=== PATIENT | female | born 2000 | race Caucasian/White ===

== ENCOUNTER → 2021-03-28 11:57 | Outpatient (CLI) | payer MEDICAID, SELFPAY ==
[2021-03-28 12:31] LABS: Basophils % 0.3 % (0.1-2.0); Eosinophils # 0.2 K/mm3 (0.0-0.4); Eosinophils % 1.6 % (0.1-12.0); Hematocrit 38.9 % (37.0-47.0); Hemoglobin 13.4 g/dL (12.2-16.2); Lymphocytes # 2.1 K/mm3 (0.7-4.5); Lymphocytes % 19.2 % (10-50); Mean Corpuscular HGB Conc 34.5 g/dL (31.8-35.4); Mean Corpuscular Hemoglobin 30.4 pg (27.0-31.2); Mean Corpuscular Volume 88.2 fl (81-99); Mean Platelet Volume 7.5 fl (7.4-10.4); Monocytes # 0.6 K/mm3 (0.1-1.0); Monocytes % 5.8 % (1.7-9.3); Neutrophils # 8.1 K/mm3 (1.8-7.8); Neutrophils % 73.1 % (37.0-80.0); Platelet Count 276 K/mm3 (142-424); Red Blood Count 4.41 M/mm3 (4.20-5.40)
[2021-03-28 12:54] LABS: Hemoglobin A1C 4.7 % (4.0-6.0)
[2021-03-28 13:01] LABS: Chloride 102 mmol/L (98-107)
[2021-03-28 13:02] LABS: Potassium 4.3 mmoL/L (3.5-5.1); Sodium 136 mmol/L (136-145)
[2021-03-28 13:04] LABS: Alanine Aminotransferase 35 U/L (12-78); Anion Gap 11.3 mEq/L (5-15); Aspartate Amino Transferase 30 U/L (14-36); Blood Urea Nitrogen 7 mg/dl (7-17); Carbon Dioxide 27 mmol/L (22.0-30.0); Estimated Glomerular Filt Rate 106 ml/min (>60); GFR (African American) 128 ML/MIN (>60)
[2021-03-28 13:05] LABS: Albumin Level 4.6 g/dl (3.5-5.0); Albumin/Globulin Ratio 1.8 (1.1-1.8); Alkaline Phosphatase 67 U/L (38-126); Bilirubin,Total 0.7 mg/dl (0.2-1.3); Calcium 9.9 mg/dl (8.4-10.2); Chol/HDL Ratio 3.3 (1-3.5); Cholesterol 166 mg/dl (140-200); Globulin 2.6 g/dL (1.3-3.2); Glucose 95 mg/dl (74-100); HDL Cholesterol 51 mg/dl (40-60); Total Protein,Serum 7.2 g/dl (6.3-8.2); Triglycerides 66 mg/dl (30-150); VLDL Cholesterol 13 mg/dL (0-40)
[2021-03-28 13:16] LABS: Direct LDL Cholesterol 94.33 mg/dL (100-129)
[2021-03-28 13:35] LABS: Thyroid Stimulating Hormone 1.21 uIU/mL (0.465-4.68)
[2021-03-30 12:30] LABS: H. pylori Stool Ag, EIA Negative (Negative)
== END ==
PROVIDERS: Visit Provider Internal Medicine Adolescent Medicine
DX: R10.13 Epigastric pain (principal); Z83.3 Family history of diabetes mellitus
CPT/HCPCS: 36415; 80053; 80061; 83036; 84443; 85025; 87338

== ENCOUNTER 2021-04-20 09:42 | Emergency (ER) | payer MEDICAID, SELFPAY ==
[2021-04-20 09:42] VITALS: BP 123/75; PULSE 99; RESP 16; TEMP 37.1; O2SAT 98; BMI 25.0
[2021-04-20 10:00] VITALS: BP 123/75; PULSE 99; RESP 16; TEMP 37.1; O2SAT 98; BMI 25.1
--- NOTE | 2021-04-20 10:10 | HMH.EDUTC ---
[facility] [place] Clinical Impression: Dental abscess Disposition: Home, Self-Care Condition on Discharge: Good Instructions: Tooth Abscess, Amoxicillin and Clavulanic Acid Additional Instructions: Use Dental balls as advised in the [facility] for dental pain Return if needed Follow up with Dentist on Thursday as scheduled Follow up with Family Doctor if needed Warm compress to side of face may help with dental pain Straight to ER if any life threatening symptoms Prescriptions: Amoxicillin/Potassium Clav [Augmentin 875-125 Tablet] 1 tab PO Q12H 3 Days #6 tab Prescription Printed Referrals: Wily Scott MD [Primary Care Provider] - As needed Time of Disposition: 10:22 Medical Decision Making - Tanmay Inquiry Pt receiving controlled substance: No Tanmay was queried for this patient: No Vital Signs: 04/20/21 09:42 Temperature 98.7 F Temperature Source Oral Pulse Rate [Radial] 99 H Respiratory Rate 16 Blood Pressure [Right Arm] 123/75 Blood Pressure Mean [Right Arm] 91 Blood Pressure Position [Right Arm] Sitting 02 Sat by Pulse Oximetry 98 Oxygen Delivery Method Room Air Medical Decision Narrative: Discussed medication with pharmacy and agreed will place patient on Augmenting bid x 3 days until patient follow up with Dentist on Thursday [facility] [place] - General Stated complaint: dental pain Time Seen by Provider: 04/20/21 10:10 Mode of Arrival: Ambulatory Source of Information: Patient Limitations: No Limitations Description of Symptoms (Recalled from Triage Doc. by RN): TO ED PER [facility] WITH C/O RT SIDE UPPER AND LOWER DENTAL PAIN. PT STATES SHE HAD 6 TEETH EXTRACTED 2 WEEKS AGO. HAS FINISHED ANTIBIOTICS AMOX 500MG THURSDAY. SEEN DENTIST [facility]ED[facility] FOR FOLLOW UP AND TOLD TO FINISH ANTIBIOTICS AND MOUTH RINSES. - History of Present Illness Provider Complaint: Patient states that she has recently had 6 teeth extracted and several other in the back of her right upper and lower jaw area that is decaying and needs to be removed State that she had dental infection and they put her on antibiotics State that she is is still having swelling and pain in her right teeth and has finished the antibiotics but doesnt think they worked to clear up her infection States that she sees dentist again on Thursday to have them check but today she was having swelling and pain so she came back in - Related Data Previous Rx's Medication Instructions Recorded Amoxicillin/Potassium Clav 1 tab PO Q12H 3 Days #6 tab 04/20/21 [Augmentin 875-125 Tablet] Allergies Allergy/AdvReac Type Severity Reaction Status Date / Time Bleach (Sodium Hypochlorite) Allergy Verified 04/20/21 10:10 latex Allergy Verified 04/20/21 10:10 [facility] History - Hepatitis A Screen Attestation statement:: This patient has been screened for Hepatitis A risk factors. I have reviewed the patient's past medical history: Yes ROS Obtained: Yes All systems reviewed & no additional complaints, Yes Systems reviewed as appropriate & no additional complaints - Constitutional Constitutional: Reports system reviewed and no additional complaints, except as docu, Denies body ache, Denies chills, Denies fever(s) - ENT Ears, Nose, Mouth, and Throat: Reports system reviewed and no additional complaints, except as docu, Reports dental pain - Cardiovascular Cardiovascular: Reports system reviewed and no additional complaints, except as docu Physical Exam - General General appearance: alert, in no apparent distress - Expanded ENT Exam Teeth exam: Present: dental caries, other (Multiple broken and decaying teeth with swelling noted ) - Respiratory Respiratory exam: Present: normal lung sounds bilaterally. Absent: respiratory distress - Cardiovascular Cardiovascular exam: Present: regular rate, normal rhythm. Absent: JVD - Neurological Exam Neurological exam: Present: alert, oriented X3
[2021-04-20 10:25] VITALS: BP 123/75; PULSE 99; RESP 16; TEMP 37.1; O2SAT 98
== END 2021-04-20 10:28 | disposition home or self-care (01) ==
PROVIDERS: Emergency Provider Nurse Practitioner; PCP Internal Medicine Adolescent Medicine
DX: K04.7 Periapical abscess without sinus (principal)
CPT/HCPCS: 99202; G0463

== ENCOUNTER → 2021-08-01 15:47 | Outpatient (CLI) | payer MEDICAID, SELFPAY ==
[2021-08-01 16:36] LABS: Anion Gap 12.1 mEq/L (5-15); Blood Urea Nitrogen 5 mg/dl (7-17); Calcium 9.4 mg/dl (8.4-10.2); Carbon Dioxide 28 mmol/L (22.0-30.0); Chloride 103 mmol/L (98-107); Estimated Glomerular Filt Rate 126 ml/min (>60); GFR (African American) 153 ML/MIN (>60); Glucose 97 mg/dl (74-100); Magnesium 1.8 mg/dl (1.6-2.3); Potassium 4.1 mmoL/L (3.5-5.1); Sodium 139 mmol/L (136-145)
[2021-08-01 17:07] LABS: Thyroid Stimulating Hormone 1.05 uIU/mL (0.465-4.68)
[2021-08-01 17:25] LABS: Vitamin B12 413 pg/mL (239-931)
== END ==
PROVIDERS: Visit Provider Internal Medicine Adolescent Medicine
DX: R00.2 Palpitations (principal)
CPT/HCPCS: 36415; 80048; 82607; 83735; 84443

== ENCOUNTER 2021-12-19 07:36 | Emergency (ER) | payer MEDICAID, SELFPAY ==
[2021-12-19 07:46] VITALS: BMI 22.7
[2021-12-19 07:48] VITALS: BP 118/74; PULSE 68; RESP 16; TEMP 37; O2SAT 98; BMI 22.7
[2021-12-19 07:58] LABS: Microscopic, Urine URINE MICROSCOPIC (MICROSCOPIC)
--- NOTE | 2021-12-19 08:00 | CT_ITS ---
FINAL REPORT CLINICAL HISTORY: ABD PAIN RADIATING TO BACK FINDINGS: CT OF THE ABDOMEN AND PELVIS WITH CONTRAST Axial CT images of the abdomen and pelvis were obtained after the administration of oral and iv contrast. Coronal reformatted images were also obtained and reviewed.This study was performed with techniques to keep radiation doses as low as reasonably achievable (ALARA). Individualized dose reduction techniques using automated exposure control or adjustment of mA and/or kV according to the patient's size were employed. Abdomen: There is mild bibasilar atelectasis. The heart is normal in size. The liver has an unremarkable appearance, without evidence of mass or biliary ductal dilatation. The gallbladder is present. The spleen is unremarkable. No adrenal mass is present. The pancreas has an unremarkable appearance. The kidneys are normal, without evidence of mass or hydronephrosis. The aorta is normal in caliber. There is no free fluid or adenopathy. No mass or abnormal fluid collection is seen. Pelvis: The appendix is normal. The urinary bladder is unremarkable. There is diffuse mild colon wall thickening which is worrisome for colitis. Note is made of arcuate versus septate uterus as a variant. There is no evidence of mass or adenopathy. There is no evidence of bowel obstruction. IMPRESSION: Diffuse, mild colon wall thickening worrisome for colitis. Reviewed, Interpreted and Dictated by Talha Garcia III, MD Transcribed by Vero Valdivia Authenticated by Talha Garcia III, MD on 12/19/2021 10:40:29 AM [facility]
[2021-12-19 08:03] LABS: Basophils # 0.1 K/mm3 (0-0.2); Basophils % 1.4 % (0.1-2.0); Eosinophils # 0.1 K/mm3 (0.0-0.4); Eosinophils % 1.5 % (0.1-12.0); Hematocrit 42.9 % (37.0-47.0); Hemoglobin 13.6 g/dL (12.2-16.2); Lymphocytes # 2.1 K/mm3 (0.7-4.5); Lymphocytes % 22.5 % (10-50); Mean Corpuscular HGB Conc 31.6 g/dL (31.8-35.4); Mean Corpuscular Hemoglobin 30.1 pg (27.0-31.2); Mean Corpuscular Volume 95.4 fl (81-99); Mean Platelet Volume 7.8 fl (7.4-10.4); Monocytes # 0.6 K/mm3 (0.1-1.0); Monocytes % 6.1 % (1.7-9.3); Neutrophils # 6.2 K/mm3 (1.8-7.8); Neutrophils % 68.5 % (37.0-80.0); Platelet Count 308 K/mm3 (142-424); Red Cell Distribution Width 13.6 % (11.5-17.5); White Blood Count 9.1 K/mm3 (4.8-10.8)
--- NOTE | 2021-12-19 08:03 | HMH.EDGENADL ---
ED Disposition Clinical Impression: Acute pancreatitis Qualifiers: Pancreatitis type: unspecified pancreatitis type Acute pancreatitis complication: unspecified Qualified Code(s): K85.90 - Acute pancreatitis without necrosis or infection, unspecified Disposition: Left Against Medical Advice Condition on Discharge: Good Additional Instructions: Only clear liquids for 24 hours. May take Tylenol or ibuprofen for pain. Follow-up with your primary care doctor as soon as possible, call today to make an appointment. Return to the emergency department if worsening pain or new symptoms such as fever or vomiting. Referrals: Wily Scott MD [Primary Care Provider] - - Critical Care Critical Care Time: No Attestation: On 12/19/21, the high probability of a clinically significant, sudden or life threatening deterioration of the following system(s) required my full and direct attention, intervention and personal management. The time I documented below is in addition to time spent performing reported procedures but includes the following listed in this critical care notation. Medical Decision Making - Tanmay Inquiry Pt receiving controlled substance: No Tanmay was queried for this patient: Yes Vital Signs: 12/19/21 07:48 Temperature 98.6 F Temperature Source Oral Pulse Rate [Radial] 68 Respiratory Rate 16 Blood Pressure [Right Radial Artery] 118/74 Blood Pressure Mean [Right Radial Artery] 88 Blood Pressure Position [Right Radial Artery] Sitting 02 Sat by Pulse Oximetry 98 Oxygen Delivery Method Room Air - Lab Data Lab Results 12/19/21 07:40: Urine Color Yellow, Urine Appearance Clear, Urine pH 6.0, Ur Specific [place] 1.025, Urine Protein Negative, Urine Glucose (UA) Negative, Urine Ketones Negative, Urine Blood Negative, Urine Nitrate Negative, Urine Bilirubin Negative, Urine Urobilinogen 0.2, Ur Leukocyte Esterase 1+ A, Urine RBC None, Urine WBC Occasional, Ur Squamous Epith Cells None, Urine Bacteria Trace 12/19/21 07:40: Urine HCG, Qual Negative 12/19/21 07:50: WBC 9.1, RBC 4.50, Hgb 13.6, Hct 42.9, MCV 95.4, MCH 30.1, MCHC 31.6 L, RDW 13.6, Plt Count 308, MPV 7.8, Neut % (Auto) 68.5, Lymph % (Auto) 22.5, [place] % (Auto) 6.1, Eos % (Auto) 1.5, Baso % (Auto) 1.4, Neut # (Auto) 6.2, Lymph # (Auto) 2.1, [place] # (Auto) 0.6, Eos # (Auto) 0.1, Baso # (Auto) 0.1 12/19/21 07:50: Sodium 133 L, Potassium 3.9, Chloride 101, Carbon Dioxide 29, Anion Gap 6.9, BUN 4 L, Creatinine 0.70, Estimated Creat Clear 131, Estimated GFR 105, Est GFR ( Amer) 127, Glucose 88, Calcium 8.5, Total Bilirubin 0.5, AST 32, ALT 23, Alkaline Phosphatase 69, Total Protein 7.3, Albumin 4.2, Globulin 3.1, Albumin/Globulin Ratio 1.4 12/19/21 07:50: Amylase 323 H*, Lipase 943 H Result diagrams: 12/19/21 07:50 12/19/21 07:50 Orders (Tests/Meds): ED MEDICATIONS Generic Name Dose Route Start Last Admin Trade Name Freq PRN Reason Stop Dose Admin Sodium Chloride 10 ml 12/19/21 07:47 Sodium Chloride 0.9% 10ml Flush Syringe IV 01/18/22 07:46 NEEDED PRN Maintain IV Site Discontinued Medications Generic Name Dose Route Start Last Admin Trade Name Freq PRN Reason Stop Dose Admin Sodium Chloride 1,000 mls @ 999 mls/hr 12/19/21 08:00 Sod Chlor 0.9% 1000ml Bag IV 12/19/21 09:00 .Q1H1M DWIGHT Sodium Chloride 1,000 mls @ 999 mls/hr 12/19/21 08:00 12/19/21 09:38 Sod Chlor 0.9% 1000ml Bag IV 12/19/21 09:00 999 mls/hr .Q1H1M DWIGHT Administration Iopamidol 75 ml 12/19/21 08:23 12/19/21 08:24 Iopamidol-370 (76%);100ml Bottle IV 12/19/21 08:24 75 ml ONCE ONE Administration Ketorolac Tromethamine 30 mg 12/19/21 08:14 12/19/21 09:39 Ketorolac 30mg/Ml Vial IV 12/19/21 08:15 30 mg ONCE ONE Administration Sodium Chloride 10 ml 12/19/21 08:23 12/19/21 08:24 Sodium Chloride 0.9% 10ml Syr (Rad Only) IV 12/19/21 08:24 10 ml ONCE ONE Administration ORDERS Category Date Time Status C
[2021-12-19 08:07] LABS: Appearance,Urine CLEAR (Clear); Bilirubin,Urine Negative (Negative); Blood, Urine Negative (Negative); Color,Urine YELLOW (Yellow); Glucose,Urine (UA) Negative (Negative); Ketones,Urine Negative (Negative); Leukocyte Esterase,Urine 1+ (Negative); Nitrate,Urine Negative (Negative); Protein,Urine Negative (Negative); Specific Gravity, Urine 1.025 (1.005-1.030); Urobilinogen,Urine 0.2 EU/dl (0.2)
[2021-12-19 08:08] LABS: Urine Pregnancy, HCG Qual. Negative (Negative)
[2021-12-19 08:11] LABS: Chloride 101 mmol/L (98-107); Potassium 3.9 mmoL/L (3.5-5.1); Sodium 133 mmol/L (136-145)
[2021-12-19 08:13] LABS: Amylase 323 U/L (30-110)
[2021-12-19 08:14] LABS: Alanine Aminotransferase 23 U/L (12-78); Albumin Level 4.2 g/dl (3.5-5.0); Albumin/Globulin Ratio 1.4 (1.1-1.8); Alkaline Phosphatase 69 U/L (38-126); Anion Gap 6.9 mEq/L (5-15); Aspartate Amino Transferase 32 U/L (14-36); Bilirubin,Total 0.5 mg/dl (0.2-1.3); Blood Urea Nitrogen 4 mg/dl (7-17); Calcium 8.5 mg/dl (8.4-10.2); Carbon Dioxide 29 mmol/L (22.0-30.0); Creatinine Clearance Estimated 131 mL/min (50-200); Estimated Glomerular Filt Rate 105 ml/min (>60); GFR (African American) 127 ML/MIN (>60); Globulin 3.1 g/dL (1.3-3.2); Glucose 88 mg/dl (74-100); Total Protein,Serum 7.3 g/dl (6.3-8.2)
[2021-12-19 08:16] LABS: Lipase 943 U/L (23-300)
--- NOTE | 2021-12-19 08:17 | US_ITS ---
FINAL REPORT CLINICAL HISTORY: pancreatitis, r/o gallstones FINDINGS: Sonographic images of the right upper quadrant were obtained. The pancreas is partially obscured.The liver has an unremarkable appearance. There is a large amount of sludge in the gallbladder without well-defined gallstones. The gallbladder wall is at the upper limits of normal measuring 3 mm. There is no evidence of biliary ductal dilatation.The common duct measures 3 mm. Limited images of the right kidney are unremarkable. IMPRESSION: Large amount of sludge in the gallbladder without well-defined gallstones. Reviewed, Interpreted and Dictated by Talha Garcia III, MD Transcribed by Vero Valdivia Authenticated by Talha Garcia III, MD on 12/19/2021 10:40:28 AM [facility]
[2021-12-19 08:29] LABS: Bacteria,Urine Trace /lpf; WBC,Urine Occasional #/hpf (0-3)
--- NOTE | 2021-12-19 10:26 | PC.NURSE ---
pt approached ed staff and stated she wanted to leave. this nurse explained to patient that we were awaiting CT report from the radiologist. pt stated she has things to do and wanted to leave anyways. MD went to bedside to speak with patient regarding risks of leaving and the importance of awaiting CT results. pt elected to leave. AMA paper signed by this nurse and patient. MD notified.
[2021-12-19 10:31] VITALS: BP 120/85; PULSE 64; RESP 16; TEMP 37; O2SAT 99
== END 2021-12-19 10:33 | disposition left against medical advice (07) ==
PROVIDERS: Emergency Provider Emergency Medicine; PCP Internal Medicine Adolescent Medicine
DX: K85.90 Acute pancreatitis without necrosis or infection, unspecified (principal); F17.210 Nicotine dependence, cigarettes, uncomplicated; M54.50 Low back pain, unspecified
CPT/HCPCS: 74177; 76705; 80053; 81001; 81025; 82150; 83690; 85025; 87086; 87088; 87186; 96365; 96375; 99282; Q9967

== ENCOUNTER → 2022-01-27 15:44 | Outpatient (CLI) | payer MEDICAID, SELFPAY ==
--- NOTE | 2022-01-27 16:00 | XR_ITS ---
PROCEDURE INFORMATION: Exam: XR Thoracic Spine Exam date and time: 01/27/2022 4:17 PM Age: 21 years old Clinical indication: Pain in thoracic spine; Additional info: Mid to low back pain TECHNIQUE: Imaging protocol: XR of the thoracic spine. Views: 3 views. COMPARISON: None FINDINGS: Bones/joints: Normal. No acute fracture. Normal alignment. Soft tissues: Unremarkable. IMPRESSION: No acute findings.
--- NOTE | 2022-01-27 16:01 | XR_ITS ---
PROCEDURE INFORMATION: Exam: XR Lumbosacral Spine Exam date and time: 01/27/2022 4:17 PM Age: 21 years old Clinical indication: Low back pain; Additional info: Mid to low back pain TECHNIQUE: Imaging protocol: XR of the lumbosacral spine. Views: 4 or 5 views. COMPARISON: CT ABDOMEN PELVIS W CON 12/19/2021 8:15 AM FINDINGS: Bones/joints: Normal. No acute fracture. Normal alignment. Soft tissues: Unremarkable. IMPRESSION: No acute findings.
== END ==
PROVIDERS: PCP Internal Medicine Adolescent Medicine; Visit Provider Nurse Practitioner Family
DX: M54.6 Pain in thoracic spine (principal); M54.50 Low back pain, unspecified
CPT/HCPCS: 72072; 72110